=== PATIENT | female | born 1975 | race African-American/Black ===

== ENCOUNTER 2019-05-15 04:58 | Day surgery (SDC) | payer OTHER ==
[2019-05-11 10:37] VITALS: BMI 30.8
--- NOTE | 2019-05-15 06:57 | HP ---
History & Physical Update - History History: No Change (H&P reviewed Consent signed and witnessed) - Physical Physical: No Change - Assessment Assessment: No Change - Plan Plan: No Change
[2019-05-15] MEDS ORDERED: oxyCODONE HCL 5 MG TABLET PO PRN (06:58)
[2019-05-15] MEDS ORDERED: ONDANSETRON 4 MG/2 ML VIAL IVPUSH PRN (06:58)
[2019-05-15] MEDS ORDERED: IBUPROFEN 600 MG TABLET (FP) PO PRN (06:58)
[2019-05-15] MEDS ORDERED: IBUPROFEN 800 MG/8 ML IJ IVPB PRN (06:58)
--- NOTE | 2019-05-15 06:58 | OP ---
Operative Note - Note: Operative Date: 05/15/19 Pre-Operative Diagnosis: 44yo P1 with menometrorrhagia, suspected intrauterine lesion Operation: Hysteroscopy, Myomectomy, D&C Findings: Anterior uterine wall, polypoid fibroid Post-Operative Diagnosis: Same as Pre-op Surgeon: Keren Baltazar Anesthesiologist/ASSEMBLER FINGER BUFFS: Rea Wu Anesthesia: MAC Specimens Removed: Submucosal fibroid, endometrial curettings Estimated Blood Loss (mls): 5 Drains & Tubes with Location: Fluid defficit - 0cc Fluid Volume Replaced (mls): 400 Operative Report Dictated: Yes
[2019-05-15] MEDS ORDERED: ELECTROLYTE-148 SOLN 1,000 ML IV SCH (07:00)
[2019-05-15] MEDS ORDERED: PROPOFOL 20 ML ONE (07:17)
[2019-05-15] MEDS ORDERED: DEXAMETHASONE SOD PHOSPHATE 4 MG/1 ML VIAL ONE (07:18)
[2019-05-15] MEDS ORDERED: MIDAZOLAM HCL 2 MG/2 ML SINGLE DOSE VIAL ONE (07:18)
[2019-05-15] MEDS ORDERED: LIDOCAINE HCL/PF 2% SDV 5ML VIAL ONE (07:18)
[2019-05-15] MEDS ORDERED: SILVER NITRATE 75% APPLIC STCK 1 PKT EACH TP ONE (08:00)
[2019-05-15] MEDS ORDERED: KETOROLAC TROMETHAMINE 30 MG/1 ML VIAL ONE (08:07)
[2019-05-15] MEDS ORDERED: LACTATED RINGERS SOLUTION 1,000 ML IV SCH (08:45)
[2019-05-15 13:38] VITALS: BP 139/77; PULSE 76; TEMP 98
--- NOTE | 2019-05-15 15:55 | OP ---
DATE OF OPERATION: 05/15/2019 PREOPERATIVE DIAGNOSIS: A 44-year-old para 1 with menometrorrhagia, suspected intrauterine lesion. OPERATION: Hysteroscopy, myomectomy, dilation and curettage. FINDINGS: Anterior uterine wall polypoid fibroid. POSTOPERATIVE DIAGNOSIS: A 44-year-old para 1 with menometrorrhagia, suspected intrauterine lesion. SURGEON: Marcy Gonzalez MD ANESTHESIOLOGIST: Rea Wu MD ANESTHESIA: MAC. SPECIMENS REMOVED: Submucosal fibroid, endometrial curettings. DESCRIPTION OF THE OPERATIVE PROCEDURE: After assuring informed consent, patient was brought to the operating room where she was placed in dorsal lithotomy position. Perineum and vagina were prepped and draped in sterile fashion. After successful time-out was called, the patient's urinary bladder was emptied to 50 mL of urine. Subsequently, the Major retractors were placed vaginally, and the anterior cervical lip was articulated with single-tooth tenaculum. The cervix was gradually dilated to accommodate 6.3-mm Symphion hysteroscope, which was introduced into the uterus without any difficulty. Inside the uterus, endometrium was found to be blood tinged circumferentially so difficulty visualizing was noted; however, subsequently, the uterus was irrigated and cleared, and anterior lower uterine segment fibroid was noted as above mentioned. Resectoscope instrument was introduced through the Symphion, and polypoid fibroid was resected off the anterior uterine wall. The endometrial curettings were collected with resectoscope circumferentially. Excellent hemostasis was noted throughout. The instruments were removed from cervix, uterus, and vagina. Estimated blood loss was 5 mL. Fluid deficit was 0 mL. Patient received 400 mL of IV fluids. Instruments and sponge count was correct x2. The tenaculum site ooze was cauterized with silver nitrate. Patient was brought to the recovery room in stable condition, extubated. MARCY GONZALEZ M.D. [id number]
--- NOTE | 2019-05-23 11:33 | PATH ---
Surgical Pathology Report Patient Name: HEENA LARSEN [facility]. Rec. #: [id number] /Age/Gender: 1975 (Age: 44) / F Account: [id number] Location: [facility] SURGICAL Taken: 05/15/2019 Received: 05/15/2019 Reported: 05/16/2019 Physicians: Keren Baltazar M.D. Specimen(s) Received ENDOMETRIAL CURETTINGS AND FIBROIDS Clinical History Abnormal uterine vagina bleeding Postoperative diagnosis: Uterine fibroids, myomectomy Final Diagnosis FIBROID AND ENDOMETRIAL CURETTINGS: FRAGMENTS OF ENDOMETRIAL AND ENDOCERVICAL POLYP. SMOOTH MUSCLE BUNDLES, CONSISTENT WITH SUBMUCOSAL LEIOMYOMA. SEPARATE FRAGMENTS OF PROLIFERATIVE ENDOMETRIUM. Electronically Signed Damari Titus M.D. Gross Description Received in formalin, labeled "fibroids and endometrial curettings" are multiple cyr, irregular portions of soft tissue measuring 3.0 x 3.0 x 2.3 cm in aggregate. The specimen is submitted in 2 cassettes. MENDOZA/05/15/2019 ariane/05/15/2019
== END 2019-05-15 13:00 | disposition home or self-care (01) ==
LOC: JASU-SURG 04:58
PROVIDERS: ATTEND Obstetrics & Gynecology
PROC: 0UB98ZZ Excision of Uterus, Via Natural or Artificial Opening Endoscopic (ICD-10-PCS; principal; 2019-05-15 07:30)
DX: N92.1 Excessive and frequent menstruation with irregular cycle (principal); D25.0 Submucous leiomyoma of uterus
CPT/HCPCS: 36415; 84703; 88305-TC; 94760

== ENCOUNTER 2020-02-02 19:26 | Emergency (ER) | payer OTHER ==
[2020-02-02 19:33] VITALS: BP 138/77; PULSE 82; TEMP 98.8; BMI 31.7
--- NOTE | 2020-02-02 20:39 | PDOC ---
History of Present Illness - General Chief Complaint: Headache Stated Complaint: SINUS INFECTION Time Seen by Provider: 02/02/20 19:28 - History of Present Illness Initial Comments: 02/02/20 21:10 This 44-year-old woman with a history of PCOS/GERD/seasonal allergies with occasional sinusitis during allergy season presents with few day history of facial discomfort, intermittent right ear pain and nasal congestion. Patient began noting generalized headache and nasal congestion 2 days ago; these are similar early symptoms that she has experienced during previous sinusitis episodes. Symptoms initially improved with ibuprofen and Sudafed yesterday but recurred today. She denies fever/chills, stiff neck, sore throat, cough or shortness of breath. Medications as noted below No known allergies Non-smoker/no daily alcohol or other recreational drug use Past History - Medical History Allergies/Adverse Reactions: Allergies Allergy/AdvReac Type Severity Reaction Status Date / Time No Known Allergies Allergy Verified 05/15/19 06:49 Home Medications: Ambulatory Orders Elderberry Fruit and Flower [Black Elderberry 575 mg Cap] 1 each PO DAILY 05/15/19 Ibuprofen [Motrin -] 600 mg PO QID #28 tablet 05/15/19 Multivitamin [Poly-Vitamin] 1 each PO DAILY 05/15/19 Om3/Dha/Epa/Cod Liver Oil/A/D3 [Cod Liver Oil Softgel] 1 each PO DAILY 05/15/19 Azithromycin [Zithromax 250mg Tablets -] 250 mg PO UTDICT #6 tab 02/02/20 Anemia: No Asthma: No (SEASONAL ALLERGIES) Cancer: No Cardiac Disorders: No CVA: No COPD: No CHF: No Dementia: No Diabetes: No GI Disorders: Yes (GERD) Disorders: Yes (PCOS,) HTN: No Hypercholesterolemia: No Liver Disease: No Seizures: No Thyroid Disease: No Other medical history: SCIATICA - Reproductive History Is Patient Now?: No - Psycho-Social/Smoking History Smoking Status: No Smoking History: Never smoked Number of Cigarettes Smoked Daily: 0 Review of Systems - Review of Systems Able to Perform ROS?: Yes Comments:: 12 point review of systems is negative except for what is noted in the history of present illness *Physical Exam - Vital Signs Last Vital Signs Temp Pulse Resp BP Pulse Ox 98.8 F 82 16 138/77 100 02/02/20 19:29 02/02/20 19:29 02/02/20 19:29 02/02/20 19:29 02/02/20 19:29 - Physical Exam GENERAL: Adult female, alert and oriented x3, in no acute distress HEAD: Normal with no signs of trauma. EYES: PERRLA, EOMI, sclera anicteric, conjunctiva clear. ENT: Ears normal, nares patent, oropharynx clear without exudates. Moist mucous membranes. Oropharyngeal secretions visualized Moderate right frontal and right maxillary sinus tenderness NECK: Normal range of motion, supple without lymphadenopathy, JVD, or masses. Mild tenderness left trapezius muscle LUNGS: Breath sounds equal, clear to auscultation bilaterally. No wheezes, and no crackles. EXTREMITIES: Normal range of motion, no edema. No clubbing or cyanosis. No erythema, or tenderness. NEUROLOGICAL: Cranial nerves II through XII grossly intact. Normal speech. No focal neurological deficits. Medical Decision Making - Medical Decision Making As noted above, this 44-year-old woman presents with seasonal allergies and few day history of headache/facial tenderness and nasal congestion. Exam as noted above. Clinical presentation consistent with early sinusitis. The patient should continue drinking plenty of fluids and using in-home humidifier (which she already has in place). She has had some relief with antihistamine/decongestive medications which she should also continue as needed. Prescription for azithromycin (Z-Zoran) will be sent to her pharmacy. She should return to the ER if she experiences more severe pain, fever or develops cough, shortness of breath. The patient has a follow-up appointment with her ENT doctor which she should keep; she can also follow-up with her general medical doctor, Dr. Titsu Discharge - Discharge Information Problems reviewed: Yes Clinical Impression/Diagnosis: Acute sinusitis Qualifiers: Sinusitis location: maxillary Recurrence: non-recurrent Qualified Code(s): J01.00 - Acute maxillary sinusitis, unspecified Condition: Stable Disposition: HOME - Additional Discharge Information Prescriptions: Azithromycin [Zithromax 250mg Tablets -] 250 mg PO UTDICT #6 tab - Follow up/Referral Referrals: Juanita Titus MD [Primary Care Provider] - - Patient Discharge Instructions Patient Printed Discharge Instructions: Sinusitis Additional Instructions: Continue using humidifier at home Antihistamine/decongestant as needed Azithromycin (Z-Zoran); taper as directed Return if you have high fever, worsening pain, difficulty breathing or cough Follow-up with your ENT doctor or Dr. Titus within the next 3 to 4 days - Post Discharge Activity
== END 2020-02-02 21:17 | disposition home or self-care (01) ==
LOC: FER 19:26
DX: J01.00 Acute maxillary sinusitis, unspecified (principal)
CPT/HCPCS: 99283-25

== ENCOUNTER 2023-09-12 15:46 | Emergency (ER) | payer OTHER ==
[2023-09-12 15:56] VITALS: BP 130/80; PULSE 72; RESP 15; TEMP 98.1; BMI 31.1
[2023-09-12] MEDS ORDERED: IBUPROFEN 600 MG TABLET (FP) PO ONE (16:13)
[2023-09-12] MEDS: IBUPROFEN 600 MG TABLET (FP) PO ONE (16:15)
== END 2023-09-12 16:54 | disposition home or self-care (01) ==
LOC: FER 15:46
DX: S40.811A Abrasion of right upper arm, initial encounter (principal); S40.812A Abrasion of left upper arm, initial encounter; S80.811A Abrasion, right lower leg, initial encounter; S80.812A Abrasion, left lower leg, initial encounter; S09.90XA Unspecified injury of head, initial encounter; M54.2 Cervicalgia; V18.0XXA Pedal cycle driver injured in noncollision transport accident in nontraffic accident, initial encounter; W17.81XA Fall down embankment (hill), initial encounter
CPT/HCPCS: 70450-TC; 72125-TC; 99284-25